=== PATIENT | male | born 1975 | race Asian ===

== ENCOUNTER 2017-06-10 03:25 | Emergency (ER) | payer OTHER ==
[~2017-06-10] VITALS: Ht 177.8 cm; Wt 68.0 kg
[2017-06-10 03:31] VITALS: BP 117/76
--- NOTE | 2017-06-10 03:40 | NUR ---
PT TAKEN TO BED 4
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
--- NOTE | 2017-06-10 05:20 | NUR ---
Patient discharged with v/s stable. Written and verbal after care instructions given and explained. Patient verbalized understanding. Ambulatory with steady gait. All questions addressed prior to discharge. Advised to follow up with PMD.
[2017-06-10 05:21] VITALS: BP 128/72
== END 2017-06-10 05:20 | disposition home or self-care (01) ==
LOC: MED 03:25
DX: S01.81XA Laceration without foreign body of other part of head, initial encounter (principal); S51.811A Laceration without foreign body of right forearm, initial encounter; W22.8XXA Striking against or struck by other objects, initial encounter; Y93.89 Activity, other specified; Y92.098 Other place in other non-institutional residence as the place of occurrence of the external cause; Y99.8 Other external cause status
CPT/HCPCS: 12001; 36415; 73090; 85018; 99285